=== PATIENT | female | born 1940 | race Caucasian/White ===

== ENCOUNTER → 2021-10-27 09:06 | Outpatient (CLI) | payer MEDICARE, OTHER, SELFPAY ==
--- NOTE | 2021-10-27 09:10 | DI.US.S_ITS ---
PROCEDURE: US ABDOMEN LIMITED INDICATIONS: Abnormal results of liver function studies TECHNIQUE: Real-time focused scanning was performed of the abdomen, with image documentation. COMPARISON: None. FINDINGS: Liver is normal in size and homogeneous in echotexture. No focal hepatic mass lesions. Flow in the main portal vein is antegrade. Gallbladder is sonographically normal. No gallstones. No gallbladder wall thickening. No pericholecystic fluid. No sonographic Mayorga sign. Biliary tree is nondilated. Common bile duct measures 3.1 millimeters. Pancreas is sonographically normal. IMPRESSION: Normal examination. Dictated by: Marianne Lenz MD, PhD on 10/27/2021 at 14:16 Approved by: Marianne Lenz MD, PhD on 10/27/2021 at 14:17
== END ==
PROVIDERS: Referring Provider Physician Assistant; Visit Provider Physician Assistant
DX: R94.5 Abnormal results of liver function studies (principal)
CPT/HCPCS: 76705

== ENCOUNTER → 2024-10-01 09:42 | Outpatient (CLI) | payer MEDICARE, OTHER, SELFPAY ==
--- NOTE | 2024-10-01 10:28 | EKG_ITS ---
[address] [address] Test Date: 2024-10-01 Pat Name: MAO DALTON Department: [facility] Room: Gender: Female Noise Tester: LUCINA : 1940 Requested By: Order Number: [id number] Reading MD: Harrison Marie MD Measurements Intervals [place] Rate: 61 P: 61 MA: 164 QRS: -18 QRSD: 68 T: 30 QT: 370 QTc: 372 Interpretive Statements Normal sinus rhythm Possible Left atrial enlargement Inferior infarct , age undetermined Anterior infarct , age undetermined Electronically Signed On 10-01-2024 11:46:17 PDT by Harrison Marie MD
[2024-10-01 10:31] LABS: Appearance Urine UA CLEAR; Bilirubin Urine UA 1+ (NEGATIVE); Color Urine UA YELLOW; Glucose Urine UA NEGATIVE (Negative); Ketones Urine UA TRACE (NEGATIVE); Leukocyte Esterase Urine UA TRACE (NEGATIVE); Nitrite Urine UA NEGATIVE (Negative); Occult Blood Urine UA NEGATIVE (Negative); Protein Urine UA TRACE (Negative); Specific Gravity Urine UA 1.025 (1.000-1.035); Urobilinogen Urine UA 1.0 E.U./dL (0.2)
[2024-10-01 10:33] LABS: pH Urine UA 5.5 (4.5-8.0)
[2024-10-01 10:38] LABS: Hemoglobin A1C% w Est Avg Glu 5.0 % (4.0-6.0)
[2024-10-01 10:42] LABS: Culture Indicated Urine Cult Not Indicated; Ictotest Urine Negative (Negative)
[2024-10-01 10:45] LABS: Add Manual Diff / Slide Review NO; Hematocrit 42.3 % (36-46); Hemoglobin 14.7 g/dL (12.0-16.0); Lymphocytes Absolute Auto 1800 /uL (1100-4500); Mean Corpuscular HGB Conc 34.8 % (30-36); Mean Corpuscular Hemoglobin 29.5 PG (26-34); Mean Corpuscular Volume 84.9 fL (80-100); Platelet Count 374 X10^3/uL (150-400)
[2024-10-01 10:55] LABS: Alanine Aminotransferase 19 IU/L (<35); Albumin 4.5 g/dL (3.5-5.0); Albumin Globulin Ratio 1.4 (1.0-2.8); Alkaline Phosphatase 115 U/L (38-126); Blood Urea Nitrogen 20 mg/dL (7-17); Calcium 9.4 mg/dL (8.4-10.2); Carbon Dioxide 23 mmol/L (22-32); Chloride 107 mmol/L (98-107); Estimated Glomerular Filt Rate > 60 mL/min (>60); Globulin 3.2 g/dL (1.7-4.1); Glucose 98 mg/dL (70-99); HEMOLYSIS 15 (0-50); Potassium 4.6 mmol/L (3.4-5.1); Sodium 138 mmol/L (137-145); Total Protein 7.7 g/dL (6.3-8.2)
== END ==
PROVIDERS: PCP Physician Assistant; Referring Provider Physician Assistant; Visit Provider Orthopaedic Surgery
DX: Z01.812 Encounter for preprocedural laboratory examination (principal); N39.0 Urinary tract infection, site not specified; R73.9 Hyperglycemia, unspecified; Z01.818 Encounter for other preprocedural examination
CPT/HCPCS: 36415; 80053; 81001; 83036; 85025; 93005; 93010